=== PATIENT | male | born 1975 | race Caucasian/White ===

== ENCOUNTER → 2016-10-04 | Outpatient (CLI) | payer OTHER ==
[~2016-10-04] MED LIST: HYDR-4332 PO
--- NOTE | 2016-10-04 12:13 | DIAGNOSTIC IMAGING REPORT ---
CHEST 2 VIEWS ROUTINE CLINICAL HISTORY: PRE OP preoperative evaluation COMPARISON STUDY: No previous studies for comparison. FINDINGS: The bones soft tissues and hemidiaphragms are normal. The cardiomediastinal silhouette is normal. The lungs are clear. The pulmonary vasculature is normal. IMPRESSION: Negative chest. Electronically signed by: Conor Benites M.D. 10/04/2016 12:11 PM Dictated Date/Time: 10/04/2016 12:11 PM
[2016-10-04 13:32] LABS: BASO % 0.4 %; BASO ABS # 0.04 K/uL (0-0.2); COMPLETE YES; EOS % 2.8 %; HEMATOCRIT 41.9 % (42-52); IG% 0.3 %; LYMPH ABS # 3.26 K/uL (1.2-3.4); MEAN CELL VOLUME 93.1 fL (80-100); MEAN CORPUSCULAR HEMOGLOBIN 30.2 pg (25-34); MEAN CORPUSCULAR HGB CONC 32.5 g/dl (32-36); MEAN PLATELET VOLUME 8.7 fL (7.4-10.4); MONO % 8.5 %; PLATELET COUNT 486 K/uL (130-400); WHITE BLOOD COUNT 9.88 K/uL (4.8-10.8)
== END | disposition home or self-care (01) ==
LOC: C.RADBC 11:34
PROVIDERS: ATTEND Orthopaedic Surgery Orthopaedic Surgery of the Spine
DX: Z01.818 Encounter for other preprocedural examination (principal)

== ENCOUNTER 2016-10-21 05:38 | Observation (INO) | payer OTHER ==
[2016-10-09 13:55] VITALS: Ht 175.3 cm; Wt 90.9 kg
[~2016-10-21] VITALS: Ht 175.3 cm; Wt 90.9 kg
[2016-10-21] VITALS (14 sets, daily range): BP systolic 111–138; BP diastolic 70–97; PULSE 71–109; TEMP 36.4–37; O2SAT 92–99
[2016-10-21] MEDS ORDERED: SODIUM CHLORIDE 0.9% 1000ML 1,000 ML IV SCH (06:00)
[2016-10-21] MEDS ORDERED: LACTATED RINGER'S 1000ML 1,000 ML IV SCH (06:00)
[2016-10-21] MEDS ORDERED: CEFAZOLIN 2000 MG/60 ML D5W IV SCH (06:00)
--- NOTE | 2016-10-21 07:07 | History and Physical ---
History & Physical Date Oct 21, 2016. Chief Complaint Neck and upper extremity pain weakness and loss of sensation History of Present Illness The patient is a 41 year old male with complaints of pain arm pain and weakness trapezius pain dexterity. Past Medical/Surgical History No past surgeries No hypertension or diabetes . No history of connective tissue disorders immune deficiency. No history of bleeding disorders Additional History Hepatic Disease: No Endocrine Disorder: No Kidney Disease: No Hypertension: No Heart Disease: No Bleeding Tendencies: No Infectious Diseases: No Allergies Coded Allergies: No Known Allergies (Unverified , 10/21/16) Home Medications Scheduled PRN Hydrocodone-Acetaminophen (LORTAB 10-325 mg), 1 TAB PO Q6H PRN for Pain Physical Examination Skin: warm/dry Eyes: normal inspection ENT: normal ENT inspection Head: normocephalic Neck: no adenopathy Respiratory/Chest: lungs clear Cardiovascular: regular rate, rhythm Abdomen / GI: normal bowel sounds Back: normal inspection Extremities: + pertinent finding (weakness to clinical counselor strength. Wrist extensor strength also weak) Diagnosis Disc osteophyte complex at cervical 5-6 cervical spine with cord compression ASA Classification: ASA Class II Plan of Treatment Single level anterior cervical discectomy and fusion C5 6 cervical spine left iliac crest bone graft
[2016-10-21] MEDS ORDERED: DEXAMETHASONE SOD INJ 4 MG/ML VIAL ONE (07:13)
[2016-10-21] MEDS ORDERED: PROPOFOL IV EMULSION 10 MG/ML 20 ML VIAL IV ONE (07:13)
[2016-10-21] MEDS ORDERED: NEOSTIGMINE METHYLSULFATE 5 MG/5 ML SYR ONE (07:13)
[2016-10-21] MEDS ORDERED: GLYCOPYRROLATE INJ 0.2 MG/ML VIAL ONE (07:13)
[2016-10-21] MEDS ORDERED: ROCURONIUM BROMIDE 10 MG/ML 5 ML VIAL ONE ×2 (07:13→11:28)
[2016-10-21] MEDS ORDERED: ONDANSETRON INJ 2 MG/ML 2 ML VIAL ONE (07:13)
[2016-10-21] MEDS ORDERED: LIDOCAINE HCL 2% 2 ML VIAL (20MG/ML) ONE (07:13)
[2016-10-21] MEDS ORDERED: FENTANYL CITRATE INJ 50 MCG/1 ML 2 ML VIAL ONE (07:14)
[2016-10-21] MEDS ORDERED: MIDAZOLAM HCL 1 MG/ML 2ML VIAL ONE (07:14)
[2016-10-21] MEDS ORDERED: HYDROmorphone INJ 2 MG/ML SYR/VIAL ONE (07:22)
[2016-10-21] MEDS ORDERED: GELATIN SPONGE SZ 100 ONE (07:35)
[2016-10-21] MEDS ORDERED: THROMBIN FOR SOLN 20000 UNIT KIT ONE (07:35)
[2016-10-21] MEDS ORDERED: BACITRACIN 50000 UNIT VIAL ONE (07:36)
[2016-10-21] MEDS ORDERED: BUPIVACAINE/EPINEPHRINE 0.5% MPF 1:200,000 10 ML VIAL ONE ×2 (07:36→11:19)
[2016-10-21] MEDS ORDERED: ATROPINE SULFATE 0.1 MG/ML 5ML SYR IV PRN (08:15)
[2016-10-21] MEDS ORDERED: MEPERIDINE HCL 25 MG/ML CARP IV PRN (08:15)
[2016-10-21] MEDS ORDERED: EpHEDrine SULFATE INJ 50 MG/ML AMP IV PRN (08:15)
[2016-10-21] MEDS ORDERED: ONDANSETRON INJ 2 MG/ML 2 ML VIAL IV PRN ×2 (08:15→09:15)
--- NOTE | 2016-10-21 09:04 | DIAGNOSTIC IMAGING REPORT ---
SPINE ONE VIEW, ANY LEVEL CLINICAL HISTORY: 41 years-old Male presenting with C5-C6 ACDF. TECHNIQUE: 1 fluoroscopic spot image(s) obtained as part of intraoperative procedure. COMPARISON: 09/10/2016. FINDINGS/IMPRESSION: Interval anterior plate and screw fixation of C5-6 with interbody spacer. Anatomic alignment is maintained. No gross evidence of prevertebral soft tissue swelling. Please see surgical report for further details. Fluoroscopy dosage (mGy): Not available. Fluoroscopy time: 6.8 seconds. Number of fluoroscopic spot images: 1. Electronically signed by: Nomi Mcallister M.D. 10/21/2016 9:03 AM Dictated Date/Time: 10/21/2016 9:02 AM
[2016-10-21] MEDS ORDERED: HYDROmorphone INJ 0.5 MG/0.5 ML SYR IV PRN (09:15)
[2016-10-21] MEDS ORDERED: NALOXONE HCL 0.4 MG/1 ML VIAL/CARP IV PRN (09:15)
[2016-10-21] MEDS ORDERED: RACEPINEPHRINE 2.25% NEBU SOLN 0.5 ML VIAL INH PRN (09:15)
[2016-10-21] MEDS ORDERED: ACETAMINOPHEN IV 100 ML IV PRN (09:15)
[2016-10-21] MEDS ORDERED: MAGNESIUM HYDROXIDE SUSP 30 ML UDC PO PRN (09:15)
[2016-10-21] MEDS ORDERED: LORAZEPAM INJ 0.5 MG in SYRINGE 0.75 ML IV PRN (09:15)
[2016-10-21] MEDS ORDERED: DEXAMETHASONE INJ 8 MG in SYRINGE 0 ML IV PRN (09:15)
[2016-10-21] MEDS: FENTANYL CITRATE INJ 50 MCG/1 ML 2 ML VIAL IV PRN ×6 (09:16→09:41)
--- NOTE | 2016-10-21 09:18 | [facility] Operative Report ---
Operative Report Operative Date Oct 21, 2016. Pre-Operative Diagnosis Cervical Spondylosis; disc herniation cervical spine cervical 5-cervical 6 Post-Operative Diagnosis Cervical Spondylosis cervical disc herniation and spondylosis cervical spine C5 6 Procedure(s) Performed C5-C6 Anterior Cervical Discectomy Fusion with Iliac Crest Bone Graft Surgeon Dr. Real Alligator Shear Operator Surgeon(s) Jessee Juárez PA-C Estimated Blood Loss 10ML Findings Cord compression Specimens none per surgeon Complication(s) None Disposition Recovery Room / PACU Indications 2 year persistence of pain numbness tingling and weakness Description of Procedure Description Patient was taken to the operating room and general intubated anesthetic provided to the patient Supine placed on the operative table. The catheter administered antibiotics administered a formal timeout obtained. Scrubbed scrubbed with Betadine prep with ChloraPrep of his iliac crest in the cervical spine anterior region' We made a transverse skin incision over C5 6 region the cervical spine dissecting soft tissue. Engage the C5 6 interspace. We did a formal discectomy C5 6 posterior and through the posterior longitudinal ligament. Out laterally to the uncovertebral joints bilaterally. All visible disc material removed. We then we made a skin went to the iliac crest skin incision fascial incision. We were able to harvest a piece of bone graft autograft iliac crest. 8 mm in height 18 mm in length. This is placed into the vacated discectomy site at C5 6. Plate of 16 mm placed over the construct. Fashion with 16 mm screws there were no complications. Then closed over a Petty drain after surgery. Spine closed with 4-0 Monocryl suture. Went to the iliac crest closed with 1 Vicryl to all and 3-0 nylon on the skin surfaces. Sterile dressings applied cervical collar applied patient successfully returned to PACU improved stable condition after extubation Made a blood loss 10 mL's. Complications 0 implants used by the [employer]. Sponge and needle count correct at the close. I attest to the content of the Intraoperative Record and any orders documented therein. Any exceptions are noted below.
[2016-10-21] MEDS: LABETALOL HCL IV 5 MG/ML 20ML IV PRN ×2 (09:21→09:26)
[2016-10-21] MEDS ORDERED: ESMOLOL HCL 10 MG/ML 10 ML VIAL ONE (09:26)
[2016-10-21] MEDS: HYDROmorphone INJ 1 MG/ML SYR IV PRN ×4 (09:52→17:36)
[2016-10-21] MEDS ORDERED: IV FLUIDS COMPLETED PRN (10:00)
--- NOTE | 2016-10-21 10:03 | Anesthesiology Progress Note ---
Anesthesia Post Op Note Date & Time Oct 21, 2016 at 10:03 Vital Signs Pain Intensity: 4 Vital Signs Past 12 Hours Date Time Temp Pulse Resp B/P (MAP) Pulse Ox O2 Delivery O2 Flow Rate FiO2 10/21/16 10:00 83 18 144/68 96 Nasal Cannula 2 10/21/16 09:50 87 18 131/94 100 Nasal Cannula 2 10/21/16 09:40 87 18 145/95 100 Oxymask 3 10/21/16 09:30 62 18 160/96 100 Oxymask 5 10/21/16 09:20 77 20 162/108 100 Oxymask 10 10/21/16 09:11 36.0 84 20 156/103 100 Oxymask 10 10/21/16 06:14 36.7 77 18 138/97 99 Room Air Notes Mental Status: alert / awake / arousable, participated in evaluation Pt Amnestic to Procedure: Yes Nausea / Vomiting: adequately controlled Pain: adequately controlled Airway Patency, RR, SpO2: stable & adequate BP & HR: stable & adequate Hydration State: stable & adequate Anesthetic Complications: no major complications apparent
[2016-10-21] MEDS ORDERED: HYDROmorphone INJ 0.5 MG/0.5 ML SYR ONE (10:41)
[2016-10-21] MEDS: OXYCODONE/ACETAMINOPHEN 5-325 TAB PO PRN ×2 (11:18→19:29)
[2016-10-21] MEDS: SODIUM CHLORIDE 0.9% 1000ML 1,000 ML IV SCH ×2 (11:23→23:31)
[2016-10-21] MEDS ORDERED: NURSING DECISION MEDICATION ORDER SCH (13:45)
[2016-10-21] MEDS ORDERED: NICOTINE 21 MG/24 HR TDSY EXT ONE (13:45)
[2016-10-21] MEDS: CEFAZOLIN IV 1,000 MG in DEXTROSE 5% 50ML 50 ML IV SCH ×2 (15:39→23:56)
[2016-10-21] MEDS: DEXAMETHASONE INJ 6 MG in SYRINGE 0 ML IV SCH ×2 (15:39→23:56)
[2016-10-21] MEDS: DOCUSATE SODIUM 100 MG CAP PO SCH (21:29)
[2016-10-22] VITALS (9 sets, daily range): BP systolic 121–151; BP diastolic 67–89; PULSE 84–98; TEMP 36.7–36.9; O2SAT 94–98
[2016-10-22] MEDS: OXYCODONE/ACETAMINOPHEN 5-325 TAB PO PRN ×2 (04:44→10:14)
[2016-10-22] MEDS: HYDROmorphone INJ 1 MG/ML SYR IV PRN ×2 (05:12→08:22)
--- NOTE | 2016-10-22 07:36 | Discharge Instructions ---
Discharge Instructions Date of Service Oct 22, 2016. Admission Reason for Admission: Cervical Spondylosis Discharge Discharge Diagnosis / Problem: cord compression Discharge Goals Goal(s): Improve function Activity Recommendations Activity Limitations: as noted below Lifting Limitations: until after follow-up appointment Exercise/Sports Limitations: until after follow-up appointment May Resume Sexual Activity: after follow-up appointment Shower/Bathe: keep incision dry Please be careful use common sense no lifting bending stooping to any great degree and no driving. . Instructions / Follow-Up Instructions / Follow-Up MEDICATIONS: Please take your prescriptions as instructed at your pre-op appointment. SPECIAL CARE: The following information is intended to answer some of the common questions and concerns regarding your surgery. Each patient is an individual and receives individual counselling throughout the course of treatment, from diagnosis to surgery all the way through recovery. What follows is not an exhaustive list, but should be a useful guide to some of the common questions and concerns patients have regarding their surgeries. These are not provided to keep you from calling us; rather, they give you something accurate and concrete to reference as you recover from your procedure. If you need us, we are available to you. As always, if you are not sure about something, call us at [phone]. MEDICAL EMERGENCIES: For these conditions, call 911 or go to your local hospital-based Emergency Department - not [facility] or equivalent. * Paralysis * Severe chest pain or difficulty breathing * Swelling or redness of either leg Spine procedures can be rather complex and though complications are rare, they do occur. In such cases, effective advice regarding emergency situations cannot always be addressed over the telephone. You may be referred to the emergency department for more effective management of your problem. Activity Limitations: It is important to give your body time to heal, so please limit your activities : * In general, don't do anything that moves your spine too much. You should avoid contact sports, twisting or heavy lifting while you recover. * 5-10 pounds is all you should attempt to lift. * You should not plan on driving for approximately 3 weeks and you should avoid traveling more than 30-45 minutes at a time. Longer trips should be broken down with walking breaks spaced appropriately. * Physical therapy is not usually required. * Walking and good posture practices will help you recover and regain your function. * Avoid straining or sudden changes in position. * In general, the goal is to take it easy and recover. Don't cause any new problems. Just relax. Showers: * Do not take a bath, use a Jacuzzi or hot tub or otherwise submerge your incision. * It is usually safe to take a shower 4-5 days after your surgery. * Your incision does not require any special creams or ointments. * Simply clean it with soap and water, dry and re-dress with a clean bandage afterwards. Incision: * Keep incision clean, dry and protected until your first follow-up appointment. * Some amount of drainage and redness is normal. Any drainage should be fairly clear and not have a foul odor. * If you feel anything is wrong or you have excessive drainage, please call us. * Your stitches and judy will be removed 10-14 days after your surgery. At the time of your first post-op visit. * Neck surgeries are typically closed with a suture underneath the skin. The steri-strips over the incision should be maintained until we see you in the office. Bracing: * You may be provided with a back or neck brace to encourage good posture and prevent injury. It will remind you not to do too much as you heal and will alert others to the fact that you have had a surgery. * Back braces may be removed for showers and when you are resting at home. They must be worn when you are walking around for any period of time or for travel. * For neck surgery, you will likely be provided with two cervical collars. The soft collar ([place] or foam rubber) is worn most commonly throughout the day and while sleeping. The plastic collar (provided at the hospital) is for showering/bathing. * Except while eating, collars should remain in place. More specifically, bracing is provided for a purpose and should be worn. * Please obtain your brace or collars prior to your operation and bring them to the hospital with you on the day of surgery. * You should also bring your collars to your post-op appointment with Dr. Real. You should always take good care of your body and practice healthy habits, especially following surgery. You should: * Follow your doctor's treatment plan * Sit and stand properly with good posture (ears over shoulders, shoulders over hips) Don't slouch * Learn to lift correctly * Exercise regularly (low-impact aerobic exercise is especially good, but check with your doctor first) * Generally, be up and walking for 5-10 minutes at a time at least 3-4 times per day from the day you get home * Increasing walking to tolerance until you can walk for 20-30 minutes at a time * Attain and maintain a healthy body weight * Eat healthy foods ( a well-balanced, low-fat diet rich in fruits and vegetables) and get enough calcium * Avoid excessive use of alcohol When to call our office - If you notice any of the following: * Increased pain not relieve by pain medicine * Fevers greater then 100 degrees F, chills or flu symptoms * Increased redness around incision * Drainage from the incision that is not clear * Any foul smelling drainage * Swelling or fluid collection beneath the skin Miscellaneous: * In the hospital, you may be given a walker or cane for support while walking. These are temporary needs and are intended to prevent injuries due to falls. You may discontinue them when you feel strong and steady enough on your feet. * Sleep in a comfortable position. We find that many patients find a lounge chair or recliner with several pillows to be beneficial in the early post-operative period. * The support stockings should be used for 7-10 days and may be discontinued when you are back to walking more and conducting usual household activities. No problem is insignificant. We are here to help you and get you well. Contact us at [phone]. Definitions: Foraminotomy: If part of the disc or a bone spur (osteophyte) is pressing on a nerve as it leaves the vertebra (through an exit called the foramen), a foraminotomy may be done. Otomy means "to make an opening." A foraminotomy is making the opening of the foramen larger, so the nerve can exit without being compressed. Laminotomy: Similar to the foraminotomy, a laminotomy makes a larger opening, this time in your bony plate protecting your spinal canal and spinal cord (the lamina). The lamina may be pressing on your nerve, so the surgeon may make more room for the nerves using a laminotomy. Laminectomy: Sometimes, a laminotomy is not sufficient. The surgeon may need to remove all or part of the lamina. This procedure is called a laminectomy. This can often be done at many levels without any harmful effects. Current Hospital Diet Patient's current hospital diet: Regular Diet Discharge Diet Recommended Diet: Regular Diet Procedures Procedures Performed: C5-C6 Anterior Cervical Discectomy Fusion with Iliac Crest Bone Graft Pending Studies Studies pending at discharge: no Medical Emergencies . Who to Call and When: Medical Emergencies: If at any time you feel your situation is an emergency, please call 911 immediately. . Non-Emergent Contact Non-Emergency issues call your: Surgeon . "Provider Documentation" section prepared by Rober Real. . VTE Core Measure Inpt VTE Proph given/why not?: Treatment not indicated
--- NOTE | 2016-10-22 07:37 | Discharge Summary ---
Orthopedic Discharge Summary Admission Date/Reason Oct 21, 2016 at 09:15 Cervical Spondylosis. Discharge Date/Disposition Oct 22, 2016 Home Diagnosis Principal Diagnosis: Spinal cord compression Procedure(s) Performed Anterior cervical discectomy C5 6 cervical spine with left iliac crest structural autograft Medication Reconciliation [place] for pain Admission Physical Exam As per Admitting History & Physical. Hospital Course Patient was admitted to my service after anterior cervical discectomy and fusion. He's done well the short run. He was seen after surgery prostate 5 hours in the next morning. Improved stable no note shortness of breath chest pain or confusion no neurological deficit. Discharge Instructions Please refer to the electronic Patient Visit Report (Discharge Instructions) for additional information.
[2016-10-22] MEDS: CEFAZOLIN IV 1,000 MG in DEXTROSE 5% 50ML 50 ML IV SCH (07:57)
[2016-10-22] MEDS: DEXAMETHASONE INJ 6 MG in SYRINGE 0 ML IV SCH (07:58)
[2016-10-22] MEDS: DOCUSATE SODIUM 100 MG CAP PO SCH (08:21)
[2016-10-22] MEDS ORDERED: NICOTINE 21 MG/24 HR TDSY TD SCH (09:00)
[2016-10-23] MEDS ORDERED: BISACODYL 10 MG SUPP PR PRN (06:00)
[2016-10-23] MEDS ORDERED: BISACODYL 5 MG TABEC PO PRN (06:00)
== END 2016-10-22 10:44 | disposition home or self-care (01) ==
LOC: C.ACU 05:38 → C.3E 09:15 → INTOOBSV 09:15 → ENRESERV 10:02
PROVIDERS: ADMIT Orthopaedic Surgery Orthopaedic Surgery of the Spine; ATTEND Orthopaedic Surgery Orthopaedic Surgery of the Spine
DX: M47.812 Spondylosis without myelopathy or radiculopathy, cervical region (principal)